=== PATIENT | male | born 1975 | race African-American/Black ===

== ENCOUNTER 2018-09-15 19:42 | Emergency (ER) | payer MEDICAID ==
[~2018-09-15] VITALS: Ht 182.9 cm; Wt 90.0 kg
[2018-09-15] MEDS ORDERED: SODIUM CHLORIDE 0.9% 1,000 ML IV ONE (20:34)
[2018-09-15] MEDS ORDERED: LORAZEPAM 2MG/ML CPJ IV ONE (20:45)
[2018-09-15] MEDS ORDERED: OLANZAPINE 10 MG/VIAL IM ONE (20:45)
[2018-09-15] MEDS ORDERED: LORAZEPAM 2MG/ML CPJ IM ONE (20:45)
[2018-09-15 21:51] LABS: EOSINOPHILS % 0.1 % (0.0-5.0); HEMATOCRIT. 40.4 % (42.0-52.0); HEMOGLOBIN. 13.2 g/dL (14.0-18.0); LYMPHOCYTES % 19.5 % (20.0-50.0); MEAN CORPUSCULAR HEMOGLOBIN 27.9 pg (28.0-32.0); MEAN CORPUSCULAR VOLUME 85.3 fL (80.0-94.0); MEAN PLATELET VOLUME 7.7 fl (7.4-10.4); MONOCYTES % 6.2 % (2.0-8.0); NEUTROPHILS % 73.2 % (40.0-76.0); PLATELET 289 x1000/uL (130-400); RED BLOOD CELL COUNT 4.73 mill/uL (4.7-6.1); RED CELL DISTRIBUTION WIDTH 15.4 % (11.6-14.6)
[2018-09-15 21:54] LABS: CHLORIDE 110 mEq/L (98-107)
[2018-09-15 21:56] LABS: PROTHROMBIN TIME 10.7 sec (9.6-11.0)
[2018-09-15 21:58] LABS: ETHANOL BLOOD 147 mg/dL
[2018-09-15 22:02] LABS: CREATINE KINASE 403 IU/L (39-308)
[2018-09-15 22:38] LABS: CLARITY URINE CLEAR (CLEAR); COLOR URINE YELLOW (YELLOW); KETONES URINE TRACE (NEGATIVE); LEUKOCYTE ESTERASE URINE NEGATIVE (NEGATIVE); NITRITE URINE NEGATIVE (NEGATIVE); OCCULT BLOOD URINE NEGATIVE (NEGATIVE); PH URINE 5.5 (4.5-8.0); PROTEIN URINE 1+ (NEGATIVE); SPECIFIC GRAVITY URINE 1.023 (1.005-1.030)
[2018-09-15 22:55] LABS: *AMPHETAMINES SCREEN URINE PRESUMTIVE POSITIVE (NEGATIVE); *BARBITURATES SCREEN URINE NEGATIVE (NEGATIVE); *BENZODIAZEPINES SCREEN URINE NEGATIVE (NEGATIVE); *COCAINE SCREEN URINE PRESUMTIVE POSITIVE (NEGATIVE)
[2018-09-15 22:56] LABS: CANNABINOID URINE SCREEN NEGATIVE (NEGATIVE); METHADONE URINE SCREEN NEGATIVE (NEGATIVE); OPIATES URINE SCREEN NEGATIVE (NEGATIVE); PHENCYCLIDINE URINE SCREEN NEGATIVE (NEGATIVE)
[2018-09-16 14:12] VITALS: BP 136/82
== END 2018-09-16 18:49 | disposition home or self-care (01) ==
LOC: ER 19:42
DX: T43.622A Poisoning by amphetamines, intentional self-harm, initial encounter (principal); T51.0X2A Toxic effect of ethanol, intentional self-harm, initial encounter; T40.992A Poisoning by other psychodysleptics [hallucinogens], intentional self-harm, initial encounter; G92 Toxic encephalopathy; F14.10 Cocaine abuse, uncomplicated; F17.210 Nicotine dependence, cigarettes, uncomplicated; Z71.6 Tobacco abuse counseling; Y92.488 Other paved roadways as the place of occurrence of the external cause
CPT/HCPCS: 36415; 80053; 80305; 80320; 81003; 82550; 83880; 84484; 85025; 85610; 93005; 96361; 96372; 96374; 99283; 99406; J2060; J3490; J7030; Z7610; G0480

== ENCOUNTER 2018-12-30 21:59 | Emergency (ER) | payer MEDICAID ==
[~2018-12-30] VITALS: Ht 182.9 cm; Wt 103.0 kg
[2018-12-31 00:23] LABS: BASOPHILS % 0.9 % (0.0-2.0); EOSINOPHILS % 2.4 % (0.0-5.0); HEMATOCRIT. 45.7 % (42.0-52.0); HEMOGLOBIN. 14.9 g/dL (14.0-18.0); LYMPHOCYTES % 33.9 % (20.0-50.0); MEAN CORPUSCULAR HEMOGLOBIN 27.9 pg (28.0-32.0); MEAN CORPUSCULAR VOLUME 85.5 fL (80.0-94.0); MEAN PLATELET VOLUME 7.2 fl (7.4-10.4); MONOCYTES % 7.6 % (2.0-8.0); NEUTROPHILS % 55.2 % (40.0-76.0); PLATELET 403 x1000/uL (130-400); RED BLOOD CELL COUNT 5.35 mill/uL (4.7-6.1); RED CELL DISTRIBUTION WIDTH 15.2 % (11.6-14.6)
[2018-12-31 00:27] LABS: CHLORIDE 107 mEq/L (98-107)
[2018-12-31 00:31] LABS: ETHANOL BLOOD < 10 mg/dL
[2018-12-31] MEDS ORDERED: CEPHALEXIN 250MG CAPSULE PO ONE (01:30)
[2018-12-31] MEDS ORDERED: SULFAMETHOXAZOLE/TRIMETHOPRIM 800/160MG TABLET PO ONE (01:30)
[2018-12-31 07:32] LABS: CLARITY URINE CLEAR (CLEAR); COLOR URINE YELLOW (YELLOW); KETONES URINE TRACE (NEGATIVE); LEUKOCYTE ESTERASE URINE NEGATIVE (NEGATIVE); NITRITE URINE NEGATIVE (NEGATIVE); OCCULT BLOOD URINE NEGATIVE (NEGATIVE); PROTEIN URINE NEGATIVE (NEGATIVE); SPECIFIC GRAVITY URINE 1.032 (1.005-1.030)
[2018-12-31 07:57] LABS: *AMPHETAMINES SCREEN URINE PRESUMTIVE POSITIVE (NEGATIVE); *BARBITURATES SCREEN URINE NEGATIVE (NEGATIVE)
[2018-12-31 07:58] LABS: *BENZODIAZEPINES SCREEN URINE NEGATIVE (NEGATIVE); *COCAINE SCREEN URINE NEGATIVE (NEGATIVE); CANNABINOID URINE SCREEN NEGATIVE (NEGATIVE); METHADONE URINE SCREEN NEGATIVE (NEGATIVE); OPIATES URINE SCREEN NEGATIVE (NEGATIVE); PHENCYCLIDINE URINE SCREEN NEGATIVE (NEGATIVE)
[2018-12-31] MEDS ORDERED: QUETIAPINE FUMARATE 25MG TABLET PO SCH (19:45)
[2018-12-31 23:00] VITALS: BP 104/80
== END 2018-12-31 23:40 ==
LOC: ER 22:21
DX: F23 Brief psychotic disorder (principal); F15.10 Other stimulant abuse, uncomplicated; F31.9 Bipolar disorder, unspecified; R45.851 Suicidal ideations; L03.116 Cellulitis of left lower limb; F14.10 Cocaine abuse, uncomplicated; F17.210 Nicotine dependence, cigarettes, uncomplicated
CPT/HCPCS: 36415; 80305; 80307; 80320; 80329; 81003; 82962; 99285; G0480

== ENCOUNTER 2020-09-08 17:35 | Emergency (ER) | payer MEDICAID ==
[~2020-09-08] VITALS: Ht 180.3 cm; Wt 82.0 kg
[2020-09-08 19:29] LABS: *AMPHETAMINES SCREEN URINE PRESUMTIVE POSITIVE (NEGATIVE); *BARBITURATES SCREEN URINE NEGATIVE (NEGATIVE); *BENZODIAZEPINES SCREEN URINE NEGATIVE (NEGATIVE)
[2020-09-08 19:30] LABS: *COCAINE SCREEN URINE NEGATIVE (NEGATIVE); CANNABINOID URINE SCREEN NEGATIVE (NEGATIVE); METHADONE URINE SCREEN NEGATIVE (NEGATIVE); OPIATES URINE SCREEN NEGATIVE (NEGATIVE); PHENCYCLIDINE URINE SCREEN NEGATIVE (NEGATIVE)
[2020-09-08 19:54] LABS: BASOPHILS % 1.1 % (0.0-2.0); EOSINOPHILS % 1.5 % (0.0-5.0); HEMATOCRIT. 37.5 % (42.0-52.0); HEMOGLOBIN. 12.8 g/dL (14.0-18.0); LYMPHOCYTES % 39.6 % (20.0-50.0); MEAN CORPUSCULAR HEMOGLOBIN 28.4 pg (28.0-32.0); MEAN CORPUSCULAR VOLUME 83.3 fL (80.0-94.0); MEAN PLATELET VOLUME 7.7 fl (7.4-10.4); MONOCYTES % 9.8 % (2.0-8.0); PLATELET 317 x1000/uL (130-400); RED CELL DISTRIBUTION WIDTH 15.5 % (11.6-14.6)
[2020-09-08 20:01] LABS: CHLORIDE 109 mEq/L (98-107)
[2020-09-08 20:05] LABS: ETHANOL BLOOD < 10 mg/dL
[2020-09-09 09:54] VITALS: BP 118/70
== END 2020-09-09 09:55 | disposition home or self-care (01) ==
LOC: ER 17:35
DX: F20.9 Schizophrenia, unspecified (principal); F15.10 Other stimulant abuse, uncomplicated; R45.851 Suicidal ideations; F31.9 Bipolar disorder, unspecified; F14.10 Cocaine abuse, uncomplicated; F12.10 Cannabis abuse, uncomplicated; J45.909 Unspecified asthma, uncomplicated; Z91.14 Patient's other noncompliance with medication regimen; Z59.0 Homelessness
CPT/HCPCS: 36415; 80048; 80305; 80307; 80320; 80329; 85025; 93005; 99285; G0480

== ENCOUNTER 2020-10-28 03:38 | Emergency (ER) | payer MEDICAID ==
[~2020-10-28] VITALS: Ht 182.9 cm; Wt 90.0 kg
[2020-10-28 04:33] LABS: EOSINOPHILS % 2.5 % (0.0-5.0); HEMOGLOBIN. 14.2 g/dL (14.0-18.0); LYMPHOCYTES % 35.9 % (20.0-50.0); MEAN CORPUSCULAR HEMOGLOBIN 27.8 pg (28.0-32.0); MEAN CORPUSCULAR VOLUME 82.6 fL (80.0-94.0); MEAN PLATELET VOLUME 7.7 fl (7.4-10.4); MONOCYTES % 9.2 % (2.0-8.0); NEUTROPHILS % 51.4 % (40.0-76.0); PLATELET 338 x1000/uL (130-400); RED BLOOD CELL COUNT 5.09 mill/uL (4.7-6.1); RED CELL DISTRIBUTION WIDTH 15.5 % (11.6-14.6)
[2020-10-28 04:43] LABS: CHLORIDE 108 mEq/L (98-107)
[2020-10-28 04:47] LABS: ETHANOL BLOOD < 10 mg/dL
[2020-10-28 07:07] LABS: CLARITY URINE CLOUDY (CLEAR); COLOR URINE DARK YELLOW (YELLOW); KETONES URINE 1+ (NEGATIVE); LEUKOCYTE ESTERASE URINE NEGATIVE (NEGATIVE); NITRITE URINE NEGATIVE (NEGATIVE); OCCULT BLOOD URINE NEGATIVE (NEGATIVE); PROTEIN URINE NEGATIVE (NEGATIVE); SPECIFIC GRAVITY URINE 1.032 (1.005-1.030)
[2020-10-28 07:17] LABS: *AMPHETAMINES SCREEN URINE PRESUMTIVE POSITIVE (NEGATIVE); *BARBITURATES SCREEN URINE NEGATIVE (NEGATIVE); *BENZODIAZEPINES SCREEN URINE NEGATIVE (NEGATIVE); *COCAINE SCREEN URINE NEGATIVE (NEGATIVE); METHADONE URINE SCREEN NEGATIVE (NEGATIVE); OPIATES URINE SCREEN NEGATIVE (NEGATIVE); PHENCYCLIDINE URINE SCREEN NEGATIVE (NEGATIVE)
[2020-10-28 07:18] LABS: CANNABINOID URINE SCREEN NEGATIVE (NEGATIVE)
[2020-10-28] MEDS ORDERED: OLANZAPINE 10MG TABLET PO SCH (21:00)
[2020-10-29] MEDS ORDERED: OLANZAPINE 10MG TABLET PO SCH (21:00)
[2020-10-30 08:35] VITALS: BP 115/80
[2020-10-30] MEDS ORDERED: OLANZAPINE 5MG TABLET PO SCH (09:00)
== END 2020-10-30 09:33 | disposition home or self-care (01) ==
LOC: ER 03:38
DX: F23 Brief psychotic disorder (principal); F16.10 Hallucinogen abuse, uncomplicated; F15.10 Other stimulant abuse, uncomplicated; F12.10 Cannabis abuse, uncomplicated; F11.10 Opioid abuse, uncomplicated; F31.9 Bipolar disorder, unspecified; F17.210 Nicotine dependence, cigarettes, uncomplicated; E11.9 Type 2 diabetes mellitus without complications; Z20.822 Contact with and (suspected) exposure to COVID-19
CPT/HCPCS: 36415; 80053; 80305; 80320; 81003; 84484; 85025; 93005; 99285; C9803; U0003; U0005; G0480

== ENCOUNTER 2021-01-06 04:16 | Emergency (ER) | payer MEDICAID ==
[~2021-01-06] VITALS: Ht 182.9 cm; Wt 101.0 kg
[2021-01-06 05:16] LABS: BASOPHILS % 1.2 % (0.0-2.0); EOSINOPHILS % 1.4 % (0.0-5.0); HEMATOCRIT. 43.2 % (42.0-52.0); HEMOGLOBIN. 14.5 g/dL (14.0-18.0); LYMPHOCYTES % 31.8 % (20.0-50.0); MEAN CORPUSCULAR VOLUME 83.5 fL (80.0-94.0); MEAN PLATELET VOLUME 7.8 fl (7.4-10.4); MONOCYTES % 7.8 % (2.0-8.0); NEUTROPHILS % 57.8 % (40.0-76.0); PLATELET 342 x1000/uL (130-400); RED BLOOD CELL COUNT 5.17 mill/uL (4.7-6.1); RED CELL DISTRIBUTION WIDTH 14.9 % (11.6-14.6)
[2021-01-06 05:19] LABS: CHLORIDE 110 mEq/L (98-107)
[2021-01-06 05:23] LABS: ETHANOL BLOOD < 10 mg/dL
[2021-01-06 07:55] LABS: *AMPHETAMINES SCREEN URINE PRESUMTIVE POSITIVE (NEGATIVE); *BARBITURATES SCREEN URINE NEGATIVE (NEGATIVE); *BENZODIAZEPINES SCREEN URINE NEGATIVE (NEGATIVE); *COCAINE SCREEN URINE NEGATIVE (NEGATIVE)
[2021-01-06 07:56] LABS: CANNABINOID URINE SCREEN NEGATIVE (NEGATIVE); METHADONE URINE SCREEN NEGATIVE (NEGATIVE); OPIATES URINE SCREEN NEGATIVE (NEGATIVE); PHENCYCLIDINE URINE SCREEN NEGATIVE (NEGATIVE)
[2021-01-06] MEDS ORDERED: LORAZEPAM 2MG/ML CPJ IM STA (08:22)
[2021-01-06] MEDS ORDERED: OLANZAPINE 10 MG/VIAL IM ONE (08:30)
[2021-01-06] MEDS ORDERED: OLAN5TAB3 PO (09:52)
[2021-01-06 11:00] VITALS: BP 127/78
== END 2021-01-06 11:31 | disposition home or self-care (01) ==
LOC: ER 04:16
DX: F32.9 Major depressive disorder, single episode, unspecified (principal); F15.10 Other stimulant abuse, uncomplicated; R45.851 Suicidal ideations; F20.9 Schizophrenia, unspecified; F14.10 Cocaine abuse, uncomplicated; F11.10 Opioid abuse, uncomplicated
CPT/HCPCS: 36415; 80053; 80305; 80307; 80320; 80329; 85025; 87426; 93005; 96372; 99285; J2060; J3490; Z7610; G0480

== ENCOUNTER 2021-05-28 04:04 | Emergency (ER) | payer MEDICAID ==
[~2021-05-28] VITALS: Ht 182.9 cm; Wt 86.0 kg
[~2021-05-28 04:04] MED LIST: OLAN5TAB3 PO
[2021-05-28 05:11] LABS: BASOPHILS % 0.9 % (0.0-2.0); EOSINOPHILS % 1.8 % (0.0-5.0); HEMATOCRIT. 40.9 % (42.0-52.0); HEMOGLOBIN. 13.4 g/dL (14.0-18.0); LYMPHOCYTES % 23.1 % (20.0-50.0); MEAN CORPUSCULAR HEMOGLOBIN 27.7 pg (28.0-32.0); MEAN CORPUSCULAR VOLUME 84.6 fL (80.0-94.0); MEAN PLATELET VOLUME 7.6 fl (7.4-10.4); MONOCYTES % 10.5 % (2.0-8.0); NEUTROPHILS % 63.7 % (40.0-76.0); PLATELET 416 x1000/uL (130-400); RED BLOOD CELL COUNT 4.83 mill/uL (4.7-6.1)
[2021-05-28 05:21] LABS: CHLORIDE 109 mEq/L (98-107)
[2021-05-28 05:26] LABS: ETHANOL BLOOD < 10 mg/dL
[2021-05-28 12:55] LABS: CLARITY URINE CLOUDY (CLEAR); COLOR URINE YELLOW (YELLOW); KETONES URINE 1+ (NEGATIVE); LEUKOCYTE ESTERASE URINE NEGATIVE (NEGATIVE); NITRITE URINE NEGATIVE (NEGATIVE); OCCULT BLOOD URINE NEGATIVE (NEGATIVE); PH URINE 5.5 (4.5-8.0); PROTEIN URINE TRACE (NEGATIVE); SPECIFIC GRAVITY URINE 1.028 (1.005-1.030); UROBILINOGEN URINE 0.2 E.U./dL (0.2-1.0)
[2021-05-28 13:28] LABS: *AMPHETAMINES SCREEN URINE PRESUMTIVE POSITIVE (NEGATIVE); *BARBITURATES SCREEN URINE NEGATIVE (NEGATIVE); *BENZODIAZEPINES SCREEN URINE NEGATIVE (NEGATIVE); *COCAINE SCREEN URINE NEGATIVE (NEGATIVE)
[2021-05-28 13:29] LABS: CANNABINOID URINE SCREEN NEGATIVE (NEGATIVE); METHADONE URINE SCREEN NEGATIVE (NEGATIVE); OPIATES URINE SCREEN NEGATIVE (NEGATIVE); PHENCYCLIDINE URINE SCREEN NEGATIVE (NEGATIVE)
[2021-05-28 21:40] VITALS: BP 133/100
== END 2021-05-28 22:19 ==
LOC: ER 04:04
DX: F31.9 Bipolar disorder, unspecified (principal); R45.851 Suicidal ideations; G40.909 Epilepsy, unspecified, not intractable, without status epilepticus; F14.10 Cocaine abuse, uncomplicated; F12.10 Cannabis abuse, uncomplicated; F15.10 Other stimulant abuse, uncomplicated; F11.10 Opioid abuse, uncomplicated; F17.210 Nicotine dependence, cigarettes, uncomplicated; Z59.00 Homelessness unspecified; Z91.14 Patient's other noncompliance with medication regimen
CPT/HCPCS: 36415; 80053; 80305; 80307; 80320; 80329; 81003; 84443; 85025; 87426; 99285; G0480

== ENCOUNTER 2021-07-01 06:32 | Emergency (ER) | payer MEDICAID ==
[~2021-07-01] VITALS: Ht 188 cm; Wt 100.0 kg
[2021-07-01] MEDS ORDERED: KETOROLAC 30MG/ML VIAL IV STA (06:45)
[2021-07-01 08:28] LABS: BASOPHILS % 1.1 % (0.0-2.0); HEMATOCRIT. 44.5 % (42.0-52.0); HEMOGLOBIN. 14.8 g/dL (14.0-18.0); LYMPHOCYTES % 37.2 % (20.0-50.0); MEAN CORPUSCULAR HEMOGLOBIN 27.7 pg (28.0-32.0); MEAN CORPUSCULAR VOLUME 83.3 fL (80.0-94.0); NEUTROPHILS % 50.7 % (40.0-76.0); PLATELET 340 x1000/uL (130-400); RED BLOOD CELL COUNT 5.34 mill/uL (4.7-6.1); RED CELL DISTRIBUTION WIDTH 15.4 % (11.6-14.6)
[2021-07-01] MEDS ORDERED: ACETAMINOPHEN WITH CODEINE 300/30MG TABLET PO ONE (08:30)
[2021-07-01 08:33] LABS: CHLORIDE 107 mEq/L (98-107)
[2021-07-01] MEDS ORDERED: TOPUD PO (08:52)
[2021-07-01 11:30] VITALS: BP 118/74
== END 2021-07-01 11:33 ==
LOC: ER 06:32
DX: M79.18 Myalgia, other site (principal); F31.9 Bipolar disorder, unspecified; F14.10 Cocaine abuse, uncomplicated; F12.10 Cannabis abuse, uncomplicated; F15.10 Other stimulant abuse, uncomplicated
CPT/HCPCS: 36415; 74176; 80053; 83690; 85025; 96374; 99284; J1885

== ENCOUNTER 2022-04-18 18:52 | Emergency (ER) | payer MEDICAID, OTHER ==
[~2022-04-18] VITALS: Ht 188 cm; Wt 86.0 kg
[~2022-04-18 18:52] MED LIST changes: +TOPUD PO
[2022-04-18 21:52] LABS: *AMPHETAMINES SCREEN URINE PRESUMTIVE POSITIVE (NEGATIVE); *BARBITURATES SCREEN URINE NEGATIVE (NEGATIVE); *BENZODIAZEPINES SCREEN URINE NEGATIVE (NEGATIVE); *COCAINE SCREEN URINE NEGATIVE (NEGATIVE); CANNABINOID URINE SCREEN NEGATIVE (NEGATIVE); METHADONE URINE SCREEN NEGATIVE (NEGATIVE); OPIATES URINE SCREEN NEGATIVE (NEGATIVE); PHENCYCLIDINE URINE SCREEN NEGATIVE (NEGATIVE)
[2022-04-18 22:34] LABS: BASOPHILS % 1.2 % (0.0-2.0); EOSINOPHILS % 2.8 % (0.0-5.0); HEMATOCRIT. 37.6 % (42.0-52.0); HEMOGLOBIN. 12.7 g/dL (14.0-18.0); LYMPHOCYTES % 41.8 % (20.0-50.0); MEAN CORPUSCULAR HEMOGLOBIN 28.2 pg (28.0-32.0); MEAN CORPUSCULAR VOLUME 83.9 fL (80.0-94.0); MEAN PLATELET VOLUME 8.5 fl (7.4-10.4); MONOCYTES % 9.7 % (2.0-8.0); NEUTROPHILS % 44.5 % (40.0-76.0); PLATELET 302 x1000/uL (130-400); RED BLOOD CELL COUNT 4.48 mill/uL (4.7-6.1); RED CELL DISTRIBUTION WIDTH 14.6 % (11.6-14.6)
[2022-04-18 22:41] LABS: CHLORIDE 104 mEq/L (98-107)
[2022-04-18 22:50] LABS: ETHANOL BLOOD < 10 mg/dL
[2022-04-18] MEDS: OLANZAPINE 10 MG/VIAL IM ONE (23:30)
[2022-04-19] MEDS ORDERED: OLANZAPINE 10MG TABLET PO SCH (09:00)
[2022-04-19 10:00] VITALS: BP 132/80
== END 2022-04-19 11:00 | disposition home or self-care (01) ==
LOC: ER 18:52
DX: F22 Delusional disorders (principal); F31.9 Bipolar disorder, unspecified; F17.290 Nicotine dependence, other tobacco product, uncomplicated; Z20.822 Contact with and (suspected) exposure to COVID-19
CPT/HCPCS: 36415; 80053; 80305; 80307; 80320; 80329; 85025; 87426; 96372; 99285; C9803; J3490; G0480

== ENCOUNTER 2023-08-10 22:58 | Emergency (ER) | payer OTHER ==
[~2023-08-10] VITALS: Ht 182.9 cm; Wt 98.0 kg
[~2023-08-10 22:58] MED LIST changes: +NALO4SPR BOTHNSTRLS
[2023-08-10 23:00] VITALS: BP 167/109; PULSE 108; RESP 16; TEMP 98.8; O2SAT 100
== END 2023-08-11 05:00 | disposition left against medical advice (07) ==
LOC: ER 23:30
DX: M79.10 Myalgia, unspecified site (principal); Z53.21 Procedure and treatment not carried out due to patient leaving prior to being seen by health care provider
CPT/HCPCS: 99281

== ENCOUNTER 2023-12-02 10:52 | Emergency (ER) | payer OTHER ==
[~2023-12-02] VITALS: Ht 180.3 cm; Wt 90.0 kg
[2023-12-02 10:54] VITALS: BP 146/89; PULSE 104; RESP 16; TEMP 98.2; O2SAT 99
[2023-12-02] MEDS ORDERED: SODIUM CHLORIDE 0.9% 1,000 ML IV ONE (11:15)
== END 2023-12-02 16:55 | disposition left against medical advice (07) ==
LOC: ER 10:52
DX: F41.9 Anxiety disorder, unspecified (principal); F11.10 Opioid abuse, uncomplicated; F15.10 Other stimulant abuse, uncomplicated; F32.A Depression, unspecified; Z86.59 Personal history of other mental and behavioral disorders
CPT/HCPCS: 71045; 93005; 99283

== ENCOUNTER 2023-12-06 19:36 | Emergency (ER) | payer OTHER ==
[~2023-12-06] VITALS: Ht 182.9 cm; Wt 100.0 kg
[2023-12-06 19:45] VITALS: BP 160/90; PULSE 98; RESP 14; TEMP 98.4; O2SAT 98
== END 2023-12-07 | disposition home or self-care (01) ==
LOC: ER 20:12
DX: E86.0 Dehydration (principal); F31.9 Bipolar disorder, unspecified; F20.9 Schizophrenia, unspecified; F15.10 Other stimulant abuse, uncomplicated
CPT/HCPCS: 80048; 80076; 80307; 80320; 80329; 83880; 84484; 99283; G0480